=== PATIENT | female | born 1965 | race African-American/Black ===

== ENCOUNTER 2022-01-14 02:47 | Day surgery (SDC) | payer MEDICARE, MEDICAID, SELFPAY ==
[2022-01-08 08:51] VITALS: BMI 45.3
--- NOTE | 2022-01-08 09:02 | PC.NURSE ---
Report to the Outpatient Waiting Room, entrance under the green pavilion located off [facility], at time _0900_ on date _[id number]_. OR Time: _1100_. Time changes happen often and if your time is changed the preop area will call you the afternoon before. - You and your visitor will be asked to self-screen and do not enter if you have any COVID symptoms. - We encourage only one visitor and NO visitors under age 16 are allowed at this time. Your visitor will receive communication by the phone number that is given day of service. - The patient visitor is requested to social distance or may leave the building when not with patient due to restrictions. - A mask is required within the hospital. Patients may have clear liquids (water, carbonated beverages, clear teas, apple juice) until 3 hours prior to surgery with a maximum of 20 ounces. - No food from midnight until time of surgery Take the following medications with a SIP of water the morning of surgery: __Amlodipine, Bupropion, Clonidine, Carvidilol and inhalers. Medications to discontinue per physician ____None Date to take last dose Please no make-up, nail maltese, hairspray, perfume, deodorant, or body powder the day of surgery. No jewelry (including any body piercings) or valuables the day of surgery, leave them at home. Please take a shower or bath the night before, or the morning of, surgery with an antibacterial soap. Wear comfortable, loose fitting clothing. - Jewelry must be removed prior to entering the operating room. Rings and piercings that are not removed may be cut off. - The hospital will not accept responsibility for valuables. - Please leave all valuables, including medications, at home the day of surgery. If you are going home after surgery, a licensed road driver must drive you home. - NO public transportation without another adult. - We recommend that an adult stay with you for 24 hours following discharge. - We also recommend that you do not drive, make important decision, drink alcoholic beverages, or take any drugs that were not prescribed by your health care provider for at least 24 hours after your discharge time. Follow any additional instructions given to you from your surgeon. If you or anyone in your household have experienced Covid symptoms in the past week, please notify your surgeon or the nurse liaison at the phone number below for possible testing. Telephone instructions given to __Patient____and asked if any additional questions and then verbalized understanding. Patient advised to call surgeon office or pre surgery nurse liaison [phone] if any additional questions.
--- NOTE | 2022-01-13 19:30 | PM.IMHP ---
H&P: HPI History of Present Illness Date/Time: 01/13/22 19:30 Chief Complaint: PMB Narrative: Ayde is a 56yo P2002, LMP 10/17/21 who presented to clinic for WWE; pap normal 09/2021. She reports her cycles are very irregular and light. She has bleeding at least 1 day per month with associated cramping. She had blood work in 2018 showing a FSH of 41. She denies any postmenopausal symptoms. She is not sexually active. 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 High blood cholesterol Hypertension Thyroid disease Trichomonal cervicitis Surgical History Surgical History H/O lumpectomy right breast History of cholecystectomy History of surgical procedure on eye proper using laser Family History Family History Father Hypertension Cancer Mother Hypertension Cervix cancer Social History Social History Years smoked: 7 Smoking status: Never smoker Tobacco type: cigarettes Alcohol intake: current Substance use: current Substance use type: does not use Other substance usage details: Just on occasions Gender identity (if verbalized by the patient): Female Sexual Orientation (if Verbalized by the Patient): Straight or Heterosexual Spiritual care concerns: No Meds Home Medications and Allergies Home Medications Medication Instructions Recorded Confirmed Type allopurinol 100 mg tablet 100 mg PO DAILY 11/07/21 01/08/22 History amitriptyline 25 mg tablet 25 mg PO QHS 11/07/21 01/08/22 History amlodipine 10 mg tablet 10 mg PO DAILY 11/07/21 01/08/22 History bupropion HCl 150 mg tablet,12 hr 150 mg PO DAILY 11/07/21 01/08/22 History sustained-release carvedilol 25 mg tablet 25 mg PO Q12H 11/07/21 01/08/22 History clonidine HCl 0.1 mg tablet 0.1 mg PO DAILY 11/07/21 01/08/22 History epinephrine 0.15 mg/0.3 mL 0.15 mg IM Q30M PRN Allergic 11/07/21 01/08/22 History injection,auto-injector Reaction hydrochlorothiazide 25 mg tablet 25 mg PO DAILY 11/07/21 01/08/22 History losartan 100 mg tablet 100 mg PO DAILY 11/07/21 01/08/22 History montelukast 10 mg tablet 10 mg PO DAILY 11/07/21 01/08/22 History nystatin 100,000 unit/gram topical 1 applic topical BID #30 grams 11/07/21 01/08/22 Rx cream rosuvastatin 10 mg tablet 10 mg PO DAILY 11/07/21 01/08/22 History sitagliptin 25 mg tablet (Januvia) 25 mg PO DAILY 11/07/21 01/08/22 History sumatriptan succinate 50 mg tablet See Rx Instructions PO .COMPLEX 11/07/21 01/08/22 History triamcinolone acetonide 0.1 % 1 applic topical BID 11/07/21 01/08/22 History topical cream ferrous sulfate 27 mg iron tablet 27 mg PO DAILY 01/08/22 01/08/22 History Allergies Allergy/AdvReac Type Severity Reaction Status Date / Time aspirin Allergy Unknown Unknown Verified 01/08/22 08:48 Penicillins Allergy Unknown Unknown Verified 01/08/22 08:48 Exam Const: General: cooperative, comfortable, no acute distress, well developed and obese Resp: Effort & Inspection: normal respiratory effort Cardio: Rate: regular rate GI: Inspection: normal to inspection GI Palp: No abdominal tenderness and Yes Soft to palpation : Other: deferred to OR Skin: General skin exam: normal color Neuro: General: patient oriented x3 Extrem: General: normal to inspection Psych: Appearance: grossly normal Affect: normal affect Attitude: cooperative Assessment and Plan Assessment and plan (1) Postmenopausal bleeding: Code(s): N95.0 - Postmenopausal bleeding Status: Acute Plan - proceed with hysteroscopy with D&C due to persisten
--- NOTE | 2022-01-14 07:01 | WPDHPUPDATE1 ---
History and Physical Update Update Date/Time: 01/14/22 07:01 History and Physical has been reviewed, including an updated exam of the patient. There are NO changes in the patient's condition. Risks, benefits, and alternatives have been discussed and questions answered. Patient agrees to proceed with procedure.
[2022-01-14 09:31] VITALS: BP 174/88; PULSE 70; RESP 18; TEMP 36.4; O2SAT 100
[2022-01-14] MEDS: ACETAMINOPHEN 500 MG TABLET 1000 MG PO (09:48)
[2022-01-14 09:52] LABS: Glucose Point of Care 113 mg/dl (65-105)
--- NOTE | 2022-01-14 10:13 | WPDANESEPPF ---
Anes - Initial Pre Proc Eval Procedure: Operation Date: 01/14/22 11:00 Proposed Procedures p Hysteroscopy with Dilation and Curettage - Kiana Esqueda MD Date/Time: 01/14/22 10:13 Surgeon: Kiana Esqueda MD Pre Op Diagnosis: Post Menopausal Bleeding Patient Data Age: 56 Gender: F Height: 1.7 m Weight: 129.4 kg Last Vital Signs Temp 36.4 C L 01/14/22 09:31 Pulse 70 01/14/22 09:31 Resp 18 01/14/22 09:31 BP 174/88 H 01/14/22 09:31 Pulse Ox 100 01/14/22 09:31 O2 Del Method Room Air 01/14/22 09:31 Allergies Allergy/AdvReac Type Severity Reaction Status Date / Time aspirin Allergy Unknown Unknown Verified 01/14/22 09:25 Penicillins Allergy Unknown Unknown Verified 01/14/22 09:25 Home Medications Medication Instructions Recorded Confirmed Type allopurinol 100 mg tablet 100 mg PO DAILY 11/07/21 01/14/22 History amitriptyline 25 mg tablet 25 mg PO QHS 11/07/21 01/14/22 History amlodipine 10 mg tablet 10 mg PO DAILY 11/07/21 01/14/22 History bupropion HCl 150 mg tablet,12 hr 150 mg PO DAILY 11/07/21 01/14/22 History sustained-release carvedilol 25 mg tablet 25 mg PO Q12H 11/07/21 01/14/22 History clonidine HCl 0.1 mg tablet 0.1 mg PO DAILY 11/07/21 01/14/22 History epinephrine 0.15 mg/0.3 mL 0.15 mg IM Q30M PRN Allergic 11/07/21 01/14/22 History injection,auto-injector Reaction hydrochlorothiazide 25 mg tablet 25 mg PO DAILY 11/07/21 01/14/22 History losartan 100 mg tablet 100 mg PO DAILY 11/07/21 01/14/22 History montelukast 10 mg tablet 10 mg PO DAILY 11/07/21 01/14/22 History nystatin 100,000 unit/gram topical 1 applic topical BID #30 grams 11/07/21 01/14/22 Rx cream rosuvastatin 10 mg tablet 10 mg PO DAILY 11/07/21 01/14/22 History sitagliptin 25 mg tablet (Januvia) 25 mg PO DAILY 11/07/21 01/14/22 History sumatriptan succinate 50 mg tablet See Rx Instructions PO .COMPLEX 11/07/21 01/14/22 History triamcinolone acetonide 0.1 % 1 applic topical BID 11/07/21 01/14/22 History topical cream ferrous sulfate 27 mg iron tablet 27 mg PO DAILY 01/08/22 01/14/22 History Laboratory Tests 01/14/22 09:43 POC Capillary Glucose 113 mg/dl H mg/dl (65-105) Patient hx anesthesia problems: none Family hx anesthesia problems: none Results Review: All pre-operative results and documents have been reviewed as part of the pre-operative evaluation. 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 High blood cholesterol Hypertension Thyroid disease Trichomonal cervicitis Surgical History Surgical History H/O lumpectomy right breast History of cholecystectomy History of surgical procedure on eye proper using laser Family History Family History Father Hypertension Cancer Mother Hypertension Cervix cancer Social History Social History Years smoked: 7 Smoking status: Never smoker Tobacco type: cigarettes Alcohol intake: current Substance use: current Substance use type: does not use Other substance usage details: Just on occasions Living arrangements: alone Gender identity (if verbalized by the patient): Female Sexual Orientation (if Verbalized by the Patient): Straight or Heterosexual Spiritual care concerns: No Anes - Eval Final PreProcedure Day of Procedure 01/14/22 10:13 Patient weight: morbidly obese Heart: regular rate and rhythm Lungs: clear to auscultation Airway: Mallampati scale class II and special considerations poor dentition ASA classification: III Emergent: no Anesthetic plan: proceed Anesthesia type and monitoring: general GIVS and standard monitoring Results Review: All pre-operative results and d
--- NOTE | 2022-01-14 11:29 | W.PM.PROC2 ---
Procedure Note - Detailed Date of Procedure 01/14/22 Pre-op Diagnosis Post Menopausal Bleeding Post-op Diagnosis Same Procedure Performed Hysteroscopy with D&C Surgeon Kiana Esqueda MD Anesthesia MAC Findings Uterus sounded to 7cm, stenotic cervix, bilateral tubal ostia visualized, normal appearing endometrium. Good hemostasis at end of case. Fluid deficit 50cc. Description of Procedure Ayde was taken to the operating room where she was placed under sedation without complications. She was then prepped and draped in the usual sterile fashion in the dorsal lithotomy position with her legs in low Fsih stirrups. A time-out was performed and no perioperative antibiotics were indicated. A bivalve speculum was placed within the vagina where the cervix was easily identified. The anterior lip of the cervix was grasped with a single-tooth tenaculum. The cervix was then serially dilated to allow for the hysteroscope. The hysteroscope was advanced into the uterine cavity with the above findings noted. A curettage was then performed until a good uterine cry was felt throughout the uterus. Good hemostasis was noted. All instruments were removed from the vagina. Sponge, lap, instrument, and needle counts were correct at the end of the procedure. Patient was awoken from anesthesia and taken to recovery with plans of same-day discharge home. Estimated Blood Loss 3 Pathology Yes (Endometrial curettings) Complications No immediate complications Condition Stable Disposition Same day [facility] Billing Surgery - Charge Forward: Surgery Billing
[2022-01-14 11:34] VITALS: BP 147/90; PULSE 75; RESP 16; O2SAT 99
[2022-01-14] MEDS: fentaNYL CITRATE INJ (*CRX) 100 MCG/2 ML VIAL 25 MCG IV PUSH ×3 (11:46→11:59)
[2022-01-14 12:00] VITALS: BP 147/90; PULSE 73; RESP 16; O2SAT 99
[2022-01-14 12:23] LABS: Glucose Point of Care 100 mg/dl (65-105)
[2022-01-14 12:30] VITALS: BP 169/87; PULSE 64; RESP 16
--- NOTE | 2022-01-14 12:59 | SUR.PHASEII ---
DAUGHTER DRIVING PATIENT HOME.
== END 2022-01-14 13:13 | disposition home or self-care (01) ==
PROVIDERS: PCP Nurse Practitioner Family; Visit Provider Obstetrics & Gynecology
PROC: 0U5B8ZZ Destruction of Endometrium, Via Natural or Artificial Opening Endoscopic (ICD-10-PCS; CPT 58563; principal; 2022-01-14 11:00)
DX: N95.0 Postmenopausal bleeding (principal); I10 Essential (primary) hypertension; E78.00 Pure hypercholesterolemia, unspecified; J45.909 Unspecified asthma, uncomplicated; M10.9 Gout, unspecified; E07.9 Disorder of thyroid, unspecified; B00.9 Herpesviral infection, unspecified; F41.9 Anxiety disorder, unspecified; F32.A Depression, unspecified; E66.01 Morbid (severe) obesity due to excess calories; Z68.41 Body mass index [BMI] 40.0-44.9, adult; Z79.84 Long term (current) use of oral hypoglycemic drugs
CPT/HCPCS: 58558; 82948; 88305; A9270; J2250; J2704; J3010; J7030